=== PATIENT | female | born 1965 | race Two or more races ===

== ENCOUNTER 2016-07-02 17:38 | Emergency (ER) | payer MEDICAID, OTHER ==
[~2016-07-02] VITALS: Ht 160 cm; Wt 73.5 kg
[2016-07-02 17:53] VITALS: BP 131/86
[2016-07-02] MEDS ORDERED: OMEPRAZOLE40 M1 ORAL (17:55)
--- NOTE | 2016-07-02 18:38 | Emergency Room Report ---
History of Present Illness General Chief Complaint: General Complaint Source: Patient Present Illness HPI 41-year-old female presents to emergency Department complaining of exacerbation of her acid reflux in addition to pain and difficulty swallowing solid foods. Patient states she has a history of acid reflux and also previously had difficulty swallowing solid foods and had upper endoscopy performed which she was told was normal and was placed on oral medication for stomach acid. Patient states that that was performed over one year ago and now she has noticed that her symptoms have returned and she has been having burning sensation in addition to pain in the throat and difficulty swallowing solid foods. Patient states she can tolerate liquids however she feels irritation in the throat patient denies significant changes in weight, night sweats, swelling of the throat/goiter. She denies history of thyroid disorder. She reports history of diabetes. Pt. states she no longer has a GI specialist. denies N/V or coughing up blood. Pt. denies FB sensation in the throat, or difficulty with breathing, pt. reports being "afraid to eat food." pt. denies choking or aspiration. Denies abdominal pain, CP, Palpitations, LOC, AMS, dizziness, Changes in Vision, Sensation, paresthesias, or a sudden severe headache. Allergies: Coded Allergies: No Known Allergies (Unverified , 07/02/16) Patient History Past Medical History: see triage record Past Surgical History: none Pertinent Family History: none Last Menstrual Period: 06/26/16 Now: No : 2 Para: 2 Immunizations: UTD Reviewed Nursing Documentation: PMH: Agreed, PSxH: Agreed Nursing Documentation-PM Past Medical History: No History, Except For Hx Gastrointestinal Problems: Yes - GERD Review of Systems All Other Systems: negative except mentioned in HPI Physical Exam Vital Signs Date Time Temp Pulse Resp B/P Pulse Ox O2 Delivery O2 Flow Rate FiO2 07/02/16 17:52 98.2 79 14 131/86 99 Room Air Sp02 EP Interpretation: reviewed, normal General Appearance: no apparent distress, alert, GCS 15, non-toxic Head: normocephalic, atraumatic Eyes: bilateral eye PERRL, bilateral eye normal inspection ENT: hearing grossly normal, normal pharynx, no angioedema, normal voice, uvula midline, moist mucus membranes, pharyngeal erythema - no exudates Neck: full range of motion, supple, thyroid normal, no bony tend, supple/symm/ no masses Respiratory: chest non-tender, lungs clear, normal breath sounds, speaking full sentences Cardiovascular #1: regular rate, rhythm, no edema, normal capillary refill Gastrointestinal: normal bowel sounds, non tender, soft, no guarding, no rebound Rectal: deferred Genitourinary: normal inspection, no CVA tenderness Musculoskeletal: back normal, gait/station normal, normal range of motion, non- tender, no calf tenderness Neurologic: alert, oriented x3, responsive, motor strength/tone normal, sensory intact, speech normal Psychiatric: judgement/insight normal, memory normal, mood/affect normal, no suicidal/homicidal ideation Skin: normal color, no rash, warm/dry, well hydrated Lymphatic: no adenopathy Medical Decision Making PA Attestation Dr. Stephens is my supervising Physician whom patient management has been discussed with. Diagnostic Impression: Primary Impression: Gastro-esophageal reflux disease with esophagitis ER Course 41-year-old female presents to emergency Department complaining of exacerbation of her acid reflux in addition to pain and difficulty swallowing solid foods. Patient states she has a history of acid reflux and also previously had difficulty swallowing solid foods and had upper endoscopy performed which she was told was normal and was placed on oral medication for stomach acid. Patient states that that was performed over one year ago and now she has noticed that her symptoms have returned and she has been having burning sensation in addition to pain in the throat and difficulty swallowing solid foods. Patient states she can tolerate liquids however she feels irritation in the throat patient denies significant changes in weight, night sweats, swelling of the throat/goiter. She denies history of thyroid disorder. She reports history of diabetes. Pt. states she no longer has a GI specialist. denies N/V or coughing up blood. Pt. denies FB sensation in the throat, or difficulty with breathing, pt. reports being "afraid to eat food." pt. denies choking or aspiration. -denies constitutional symptoms. Ddx considered but are not limited to GERD, Dysphagia, achalasia, motility disorder, esophageal strictures/rings. Vital signs: are WNL, pt. is afebrile, NAD, non-toxic in appearance. Pt. is of normal BMI no suspicious of failure to thrive or malnutrition. H&PE are most consistent with hx of GERD and normal Upper endoscopy for similar symptoms last year. ORDERS: none required at this time, the diagnosis is clinical ED INTERVENTIONS: -150mg Zantac - As pt. had previous normal Upper endoscopy performed last year and was dx with GERD previously, I feel this pt. is stable for close outpatient follow up with GI specialist to perform outpatient imaging. Pt. is able to tolerate liquids and solids PO, she has increased pain and hesitation with solids. DISCHARGE: At this time pt. is stable for d/c to home. Will provide printed patient care instructions, and any necessary prescriptions. Care plan and follow up instructions have been discussed with the patient prior to discharge. Last Vital Signs Date Time Temp Pulse Resp B/P Pulse Ox O2 Delivery O2 Flow Rate FiO2 07/02/16 17:53 98.3 79 14 131/86 99 Room Air Disposition: HOME, SELF-CARE Condition: Stable Scripts Ranitidine Hcl* (ZANTAC*) 150 Mg Tablet 150 MG ORAL TWICE A DAY for 30 Days, #60 TAB Prov: Lucero Reese 07/02/16 Patient Instructions: Food Choices for Gastroesophageal Reflux Disease, Adult, [id number], Gastroesophageal Reflux Disease, Adult, [id number] Additional Instructions: Take medications as directed. Follow up with PCP or GI Specialist in 3 days. Return sooner to ED if new symptoms occur, or current symptoms become worse. - Please note that this Emergency Department Report was dictated using [employer] technology software, occasionally this can lead to erroneous entry secondary to interpretation by the dictation equipment. Lucero Reese Jul 02, 2016 18:38
[2016-07-02] MEDS ORDERED: ZANTAC150 MG ORAL (18:40)
[2016-07-02 18:57] VITALS: BP 120/79
== END 2016-07-02 18:58 | disposition home or self-care (01) ==
LOC: EMR 18:44
DX: K21.0 Gastro-esophageal reflux disease with esophagitis (principal)
CPT/HCPCS: 99283